=== PATIENT | female | born 1975 | race Hispanic/Latino ===

== ENCOUNTER 2019-02-14 12:17 | Inpatient (IN) | payer OTHER ==
[2019-02-14 13:04] VITALS: BMI 22.2
[2019-02-14] MEDS ORDERED: Oxytocin 30 UNIT in NS 500 ml 30 UNITS/500 ML BAG IV ONE (13:11)
[2019-02-14] MEDS ORDERED: OXYTOCIN/0.9 % NS 20 UNIT/1,000 ML BAG IV SCH (13:15)
[2019-02-14] MEDS ORDERED: Lactated Ringer's 1,000 ML IV SCH (13:15)
[2019-02-14] MEDS ORDERED: Penicillin G 5 Million Unit Vial IVPB ONE (13:19)
--- NOTE | 2019-02-14 13:20 | OBHP ---
Datetime: 02/14/2019 13:00 IP Adm Impression: Term, intrauterine ; Active labor; Intact Membranes IP Chief Complaint Other: CTX since 1h ago IP Admit Plan: Admit to unit; Initiate labor protocol Admit Comment, IP Provider: 43yo IUP at 40w1d c/o CT since 1h ago. + q 2-3m; no SROM; no VB ; +FM Prental care: Dr Lisa Perez chart rev'd - AMA/ GBS+ / Hydronephrosis PMH: denies SPH: denies NKA PSoH Denies smoking EWTOH drugs POBGYNH: x 1 A: IUP at 40w/active labor AMA Rubella Non Immune PLAN: admit to L_D IV access pain management IV Ab Observe labor progress Rubell vaccine after delivery Her questions answered. Her present for discussion Pelvic Type - PN: Adequate Extremities - PN: Normal Abdomen - PN: Normal Back - PN: Normal Breast - PN: Not Done Lungs - PN: Normal Heart - PN: Normal Thyroid - PN: Normal Neurologic - PN: Normal HEENT - PN: Normal General - PN: Normal Presentation-Admit: Vertex FHR - Baseline A Provider: 120 Membranes, Provider: Intact Contraction Comments Provider: 2-3m Pool Provider: Negative IP Hx Assessment: The History has been Reviewed and is Current EGA AdmitDate IP: 40.1 IP Chief Complaint: Uterine contractions NICHD Variability Prov Fetus A: Moderate 6-25bpm NICHD Accel Fetus A IP Provider: 15X15 FHR Category Provider Fetus A: Category I NICHD Decel Fetus A IP Provider: None Dilatation, Provider: 7-8 Effacement, Provider: 90 Station, Provider: -1 Genitourinary Exam: Normal DTRs - PN: Normal
[2019-02-14] MEDS ORDERED: Lidocaine 1% Inj (20ml) ONE (13:26)
[2019-02-14 13:40] LABS: HEMOGLOBIN 11.1 g/dL (12.0-16.0); MEAN CELL VOLUME 91.9 fl (81.0-99.0); MEAN CORPUSCULAR HEMOGLOBIN 31.2 pg (27.0-31.0); RBC 3.55 Mil/uL (3.80-5.20); RED CELL DISTRIBUTION WIDTH 13.7 % (11.5-14.5)
[2019-02-14] MEDS ORDERED: Bupivacaine HCl 0.5% PF (30 ml) Inj ONE (14:09)
[2019-02-14] MEDS ORDERED: Benzocaine/Menthol SPRAY TOP PRN ×2 (14:49→19:31)
[2019-02-14] MEDS ORDERED: Oxycodone/Acetaminophen 5/325 mg Tab PO PRN ×4 (14:49→19:31)
--- NOTE | 2019-02-14 14:50 | OBADHP ---
Datetime: 02/14/2019 13:00 IP Chief Complaint Other: CTX since 1h ago Admit Comment, IP Provider: 43yo IUP at 40w1d c/o CT since 1h ago. + q 2-3m; no SROM; no VB ; +FM Prental care: Dr Lisa Perez chart rev'd - AMA/ GBS+ / Hydronephrosis PMH: denies SPH: denies NKA PSoH Denies smoking EWTOH drugs POBGYNH: x 1 A: IUP at 40w/active labor AMA Rubella Non Immune PLAN: admit to L_D IV access pain management IV Ab Observe labor progress Rubell vaccine after delivery Her questions answered. Her present for discussion Pelvic Type - PN: Adequate Extremities - PN: Normal Abdomen - PN: Normal Back - PN: Normal Breast - PN: Not Done Lungs - PN: Normal Heart - PN: Normal Thyroid - PN: Normal Neurologic - PN: Normal HEENT - PN: Normal General - PN: Normal Presentation-Admit: Vertex FHR - Baseline A Provider: 120 Membranes, Provider: Intact Contraction Comments Provider: 2-3m Pool Provider: Negative IP Hx Assessment: The History has been Reviewed and is Current IP Chief Complaint: Uterine contractions NICHD Variability Prov Fetus A: Moderate 6-25bpm NICHD Accel Fetus A IP Provider: 15X15 FHR Category Provider Fetus A: Category I NICHD Decel Fetus A IP Provider: None Dilatation, Provider: 7-8 Effacement, Provider: 90 Station, Provider: -1 Genitourinary Exam: Normal DTRs - PN: Normal EGA AdmitDate IP: 40.1 IP Adm Impression: Term, intrauterine ; Active labor; Intact Membranes IP Admit Plan: Admit to unit; Initiate labor protocol
[2019-02-14 15:52] VITALS: RESP 18
[2019-02-15 07:38] LABS: BASO # 0.1 K/uL (0.0-0.2); BASO % 0.4 % (0.0-2.0); EOS # 0.1 K/uL (0.0-0.7); EOS % 0.7 % (0.0-4.0); HEMOGLOBIN 9.8 g/dL (12.0-16.0); LYMPH # 2.9 K/uL (1.0-4.3); LYMPH % 19.8 % (20.0-40.0); MEAN CORPUSCULAR HEMOGLOBIN 31.4 pg (27.0-31.0); MEAN CORPUSCULAR HGB CONC 33.4 g/dL (33.0-37.0); MEAN PLATELET VOLUME 8.6 fl (7.2-11.7); MONO % 6.9 % (0.0-10.0); NEUT # 10.5 K/uL (1.8-7.0); NEUT % 72.2 % (50.0-75.0); NRBC % 0.1 % (0.0-0.0); RBC 3.11 Mil/uL (3.80-5.20); RED CELL DISTRIBUTION WIDTH 13.8 % (11.5-14.5); WHITE BLOOD COUNT 14.5 K/uL (4.8-10.8)
--- NOTE | 2019-02-15 07:39 | OBPPN ---
Datetime: 02/15/2019 07:33 PP Pain Prov: Within normal limits PP Nausea Prov: Denies PP Flatus Prov: Yes PP BM Prov: No PP Breasts Prov: Normal PP Heart Prov: Normal PP Lungs Prov: Normal PP Abdomen/Uterus Prov: Normal PP Lochia Prov: Normal PP Vulva/Perineum Prov: Normal PP CVA Tenderness Prov: Normal PP Extremities Prov: Normal PP Progress Prov: Normal PP Impression Prov: Normal progression PP Plan Prov: Continue present management PP Progress Note Prov: She feels fine this AM A; S/P day 1 PLAN: anticiapte discharge in AM
--- NOTE | 2019-02-16 11:05 | OBDCSUM ---
Datetime: 02/14/2019 13:26 Discharged to, Provider: Home Follow up at, Provider: Chris Discharge Instructions, Provider: Routine instructions given Discharge Diagnosis, Provider: Term Delivered Discharge Time: 02/16/2019 10:59 Follow up in weeks, Provider: 6 weeks Contraception discussed, Prov: Yes Disch Activity Restrictions: Nothing in vagina - [place], tampons, douche
--- NOTE | 2019-02-16 11:05 | OBPPN ---
Datetime: 02/16/2019 10:57 PP Pain Prov: Within normal limits PP Nausea Prov: Denies PP Flatus Prov: Yes PP BM Prov: Yes PP Breasts Prov: Normal PP Heart Prov: Normal PP Lungs Prov: Normal PP Abdomen/Uterus Prov: Normal PP Lochia Prov: Normal PP Vulva/Perineum Prov: Normal PP CVA Tenderness Prov: Normal PP Extremities Prov: Normal PP C/S Incision Prov: Not Applicable PP Progress Prov: Normal PP Comments Phys Exam Prov: Abdomen soft, nontender, nondistended Uterus firm, below umbilicus No deep calf tenderness bilaterally PP Impression Prov: Normal progression PP Plan Prov: Continue present management PP Progress Note Prov: day #2 status post , patient recovering well Patient discharged home with instructions Patient will follow-up in office in 6 weeks for visit. IP PP Procedures: None Vital Signs Provider PP: Reviewed; Within Normal Limits
[2019-02-16] MEDS ORDERED: Rubella Virus Vaccine Inj SC ONE (11:30)
[2019-02-16] MEDS ORDERED: Measles, Mumps, and Rubella 0.5 ML VIAL SC ONE (12:00)
[2019-02-16 19:13] VITALS: BP 109/73; PULSE 75; TEMP 98.2; O2SAT 94
--- NOTE | 2019-02-18 08:31 | OBDS ---
MATERNAL INFORMATION Provider Comments: Delivered a live baby boy at 1445 the baby was bulb suctioned on the perineum the n transferred to the maternal chest. The cord was clamped and cut 3 vessels noted cord blood was obt ained and sent to the lab. Placenta was delivered at 1449 intact, the quantified blood loss was 100 cc. There was a first-degree laceration was repaired with 2-0 Rapide. The mother tolerated the [facility] well baby went to the [facility] baby [facility] with Apgars of 9 9 weight 3505g LABOR SUMMARY EDC: 02/13/2019 00:00 LABOR INFORMATION Group B Beta Strep: Positive VAGINAL DELIVERY Episiotomy: None Laceration Extension: First Degree Laceration Type: Vaginal Laceration Repair: Yes Sponge Count Correct: Yes Sharps Count Correct: Yes
== END 2019-02-16 13:30 | disposition home or self-care (01) | DRG 807 ==
LOC: H.EROB2 12:17 → H.L&D 13:09 → H.OB/GYN 16:51
PROVIDERS: ADMIT Obstetrics & Gynecology; ATTEND Obstetrics & Gynecology
PROC: 10E0XZZ Delivery of Products of Conception, External Approach (ICD-10-PCS; principal; 2019-02-14)
PROC: 0HQ9XZZ Repair Perineum Skin, External Approach (ICD-10-PCS; 2019-02-14)
PROC: 4A1HXCZ Monitoring of Products of Conception, Cardiac Rate, External Approach (ICD-10-PCS; 2019-02-14)
DX: O76 Abnormality in fetal heart rate and rhythm complicating labor and delivery (principal); Z37.0 Single live birth; O70.0 First degree perineal laceration during delivery; O69.81X0 Labor and delivery complicated by cord around neck, without compression, not applicable or unspecified; O99.824 Streptococcus B carrier state complicating childbirth; Z3A.40 40 weeks gestation of pregnancy